=== PATIENT | female | born 1995 | race Two or more races ===

== ENCOUNTER 2019-10-28 22:36 | Emergency (ER) | payer SELFPAY ==
[~2019-10-28] VITALS: Ht 152.4 cm; Wt 68.0 kg
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
[2019-10-29 00:29] VITALS: BP 133/78
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
[2019-10-29] MEDS ORDERED: IBUPROFEN600 M1 ORAL (01:34)
[2019-10-29 01:40] VITALS: BP 138/70
== END 2019-10-29 01:40 | disposition home or self-care (01) ==
LOC: EDBD 22:36 → EMR 22:58
DX: R51 Headache (principal); Y04.2XXA Assault by strike against or bumped into by another person, initial encounter; Y92.009 Unspecified place in unspecified non-institutional (private) residence as the place of occurrence of the external cause
CPT/HCPCS: 70450; 70486; 99284